=== PATIENT | female | born 1980 | race Caucasian/White ===

== ENCOUNTER 2023-04-20 07:17 | Day surgery (SDC) | payer OTHER, SELFPAY ==
[2023-03-20 08:59] VITALS: BMI 24.2
[2023-04-10 13:51] VITALS: BMI 24.0
[2023-04-20 08:52] VITALS: BP 116/80; PULSE 95; RESP 20; TEMP 36.9; O2SAT 100
[2023-04-20] MEDS: LACTATED RINGERS 1,000 ML 150 ML IV CONT (09:12)
--- NOTE | 2023-04-20 09:17 | P.HP_ITS ---
History of Present Illness History of Present Illness Consent: Risks, benefits, and alternatives have been discussed and questions answered. Patient agrees to proceed with procedure. Chief complaint: Dysphagia Narrative: Vanessa Ramsey is a 42 year old female presents for EGD. Patient has a history of esophageal stricture initially diagnosed at age 19. This was very tight required several dilatations. At that time maintained on Zantac. She eventually discontinue this medication. She has no significant heartburn. Or indigestion over the last 1 year she has noticed recurrent dysphagia with meat and rice catching in the mid substernal portion of the chest. She denies any significant pain. She currently takes only intermittent Tums. Family history is noncontributory. The patient returns for follow-up EGD because of recurrent dysphagia. Review of Systems Review of Systems: Review of systems is noncontributory. FORMERLY [facility], 1928–1983 Past Medical History Medical History (Updated 04/20/23 @ 09:19 by Jonas Maldonado MD) delivery delivered Surgical History Surgical History (Updated 03/17/23 @ 11:07 by Anibal Lopez) Status post arthroscopic knee surgery Social History Social History Smoking status: Never smoker Alcohol intake: unknown Substance use: unknown Substance use type: does not use Living arrangements: with family Spiritual care concerns: No Meds Home Medications and Allergies Home Medications Medication Instructions Recorded Confirmed Type albuterol sulfate 90 mcg/actuation 1 puff inhalation Q4H PRN Allergic 03/17/23 04/20/23 History aerosol inhaler (ProAir HFA) Symptoms Allergies Allergy/AdvReac Type Severity Reaction Status Date / Time clarithromycin Allergy Mild THRUSH Verified 04/20/23 08:50 latex AdvReac Mild Itching Verified 04/20/23 08:50 Vital Signs Vital Signs - 24 hr 04/20/23 08:52 Temperature 98.4 F Pulse Rate 95 Respiratory Rate 20 Blood Pressure 116/80 Pulse Oximetry 100 Oxygen Delivery Room Air Exam Narrative: Physical exam reveals patient to be alert. Vital signs stable. HEENT exam is unremarkable. Patient is anicteric. Lungs are clear to auscultation and heart is without murmur or extra sounds. Abdomen bowel sounds are present soft nontender with no organomegaly. Digital external rectal exam is normal. Assessment and Plan Assessment and plan (1) Dysphagia: Code(s): R13.10 - Dysphagia, unspecified Status: Acute Assessment and Plan: Patient with dysphagia. She is known to have esophageal stricture requiring dilatation 20 years ago. Plan for follow-up EGD at this time. Further recommendations may be given after endoscopy.
--- NOTE | 2023-04-20 09:22 | WPDANESEPPF ---
Anes - Initial Pre Proc Eval Procedure: Operation Date: 04/20/23 10:00 Proposed Procedures p Esophagogastroduodenoscopy - Jonas Maldonado MD Date/Time: 04/20/23 09:22 Surgeon: Jonas Maldonado MD Pre Op Diagnosis: Dysphagia Patient Data Age: 42 Gender: F Height: 1.65 m Weight: 65.7 kg Last Vital Signs Temp 36.9 C 04/20/23 08:52 Pulse 95 04/20/23 08:52 Resp 20 04/20/23 08:52 BP 116/80 04/20/23 08:52 Pulse Ox 100 04/20/23 08:52 O2 Del Method Room Air 04/20/23 08:52 Allergies Allergy/AdvReac Type Severity Reaction Status Date / Time clarithromycin Allergy Mild THRUSH Verified 04/20/23 08:50 latex AdvReac Mild Itching Verified 04/20/23 08:50 Home Medications Medication Instructions Recorded Confirmed Type albuterol sulfate 90 mcg/actuation 1 puff inhalation Q4H PRN Allergic 03/17/23 04/20/23 History aerosol inhaler (ProAir HFA) Symptoms Patient hx anesthesia problems: none Family hx anesthesia problems: none Results Review: All pre-operative results and documents have been reviewed as part of the pre-operative evaluation. [facility] Past Medical History Medical History (Updated 04/20/23 @ 09:23 by Pramod Thompson MD) Asthma delivery delivered Dysphagia Surgical History Surgical History (Updated 04/20/23 @ 09:23 by Pramod Thompson MD) History of esophagogastroduodenoscopy (EGD) Status post arthroscopic knee surgery Social History Social History Smoking status: Never smoker Alcohol intake: unknown Substance use: unknown Substance use type: does not use Living arrangements: with family Spiritual care concerns: No Anes - Eval Final PreProcedure Day of Procedure 04/20/23 09:22 Patient weight: normal Heart: regular rate and rhythm Lungs: clear to auscultation Airway: Mallampati scale class II Neurological: alert and oriented Last oral intake: >/= 8 hours ASA classification: II Emergent: no Anesthetic plan: proceed Anesthesia type and monitoring: general GIVS and standard monitoring Results Review: All pre-operative results and documents have been reviewed as part of the pre-operative evaluation. Informed Consent: The patient's anesthetic plan and its attendant risks and benefits were discussed with the patient/family/POA. Questions were solicited and answers provided to the satisfaction of the patient/family/POA.
[2023-04-20 10:08] VITALS: BP 96/79; PULSE 84; RESP 16; O2SAT 100
[2023-04-20 10:18] VITALS: BP 109/79; PULSE 72; RESP 16; O2SAT 100
[2023-04-20 10:28] VITALS: BP 112/76; PULSE 62; RESP 16; O2SAT 100
--- NOTE | 2023-04-20 10:37 | SUR.PHASEII ---
PT C/O MILD NAUSEA. PT SITTING MORE UPRIGHT NOW PER REQUEST. DRINKING WATER AND EATING SALTINES. NOTIFIED JEZ HERMAN CRNA. ZOFRAN 4MG IVP ORDERED.
[2023-04-20] MEDS: ONDANSETRON INJ 4 MG/2 ML VIAL IV PUSH (10:38)
--- NOTE | 2023-04-20 10:45 | WPDANESPN ---
Anes - Prog Note Post-Op Date/Time: 04/20/23 10:45 Cardiovascular status: normal Respiratory status: normal Airway patency: baseline Mental status: baseline Post-Op hydration status: normal Vital Signs: Last Vital Signs Temp 36.9 C 04/20/23 08:52 Pulse 72 04/20/23 10:18 Resp 16 04/20/23 10:18 BP 109/79 04/20/23 10:18 Pulse Ox 100 04/20/23 10:18 O2 Del Method Room Air 04/20/23 10:18 Pain Score (VAS): 0/10 I/O: Intake & Output 04/19/23 04/20/23 04/20/23 23:59 07:59 15:59 Intake Total 300 Balance 300 Patient Feedback: Patient satisfied with anesthetic care.
--- NOTE | 2023-04-20 11:13 | SUR.PHASEII ---
1050; PT STATES RELIEF OF NAUSEA.
== END 2023-04-20 11:00 | disposition home or self-care (01) ==
PROVIDERS: PCP Family Medicine; Visit Provider Internal Medicine Gastroenterology
PROC: 0DJ08ZZ Inspection of Upper Intestinal Tract, Via Natural or Artificial Opening Endoscopic (ICD-10-PCS; CPT 43235; principal; 2023-04-20 10:00)
DX: R13.19 Other dysphagia (principal); Q39.4 Esophageal web
CPT/HCPCS: 43450